=== PATIENT | male | born 1965 | race Caucasian/White ===

== ENCOUNTER → 2016-06-14 | Outpatient (CLI) | payer BC ==
--- NOTE | 2016-06-14 16:47 | REP ---
Right shoulder series: Four views: History: 49.91. Findings: There is osteoarthritis at the AC and glenohumeral articulations. A small accessory ossicle is seen at the superior aspect of the glenohumeral articulation. Subcortical cyst formation is seen in the humeral head. No fracture or subluxation is seen. Acromion process spurring is noted. Impression: Degenerative changes. No acute bony abnormality. Glenohumeral and acromioclavicular joint osteoarthritis. Acromion process spurring. Signed by Brice Farah MD 06/14/2016 05:42 P
--- NOTE | 2016-06-14 16:48 | REP ---
Right humerus: Three views: History: 79.62. Findings: Three views of the right humerus show no evidence of fracture or other acute bony abnormality. Osteoarthritic changes are seen at the shoulder. Impression: No acute bony abnormality. Signed by Brice Farah MD 06/14/2016 05:42 P
--- NOTE | 2016-06-14 16:49 | REP ---
Right elbow series: Four views: History: 59.90. Findings: Four views right elbow demonstrate coronoid process and olecranon process spurring. No fracture, subluxation, or joint effusion is seen. There is some lateral epicondylar spurring as well. Impression: Proximal ulnar spurring. Lateral epicondylar spurring. No acute bony abnormality. Signed by Brice Farah MD 06/14/2016 05:42 P
--- NOTE | 2016-06-14 17:29 | REP ---
Two-view right clavicle series, 06/14/2016: Indication: Right shoulder injury. Findings: Moderate hypertrophic and osteoarthritic changes are noted at the acromioclavicular joint. There is no acute fracture, subluxation, or dislocation within the right clavicle. The included portions of the scapula are without visualized fracture. Subchondral cystic changes in the humeral head consistent with mild osteoarthritic change. There are moderately decreased right lung volume with atelectatic changes in the right lower lung field. The left chest is mostly omitted from view. Left upper lobe opacity is suggested, possibly representing medial left clavicle. Impression: Moderate hypertrophic and osteoarthritic changes at the right acromioclavicular joint. No acute fracture or dislocation within the right clavicle. Consider chest radiograph if clinically indicated. Lung volumes are diminished and there is moderate atelectasis. Left perihilar opacity is suggested, possibly representing medial head of left clavicle. Signed by Lucina De La Cruz MD 06/14/2016 09:25 P
== END | disposition home or self-care (01) ==
LOC: M LRY 14:50
PROVIDERS: ATTEND Nurse Practitioner Family
DX: S59.901A Unspecified injury of right elbow, initial encounter (principal); M79.621 Pain in right upper arm; S49.91XA Unspecified injury of right shoulder and upper arm, initial encounter; M19.011 Primary osteoarthritis, right shoulder; M77.11 Lateral epicondylitis, right elbow; X58.XXXA Exposure to other specified factors, initial encounter; Y92.9 Unspecified place or not applicable; Y93.9 Activity, unspecified; Y99.9 Unspecified external cause status

== ENCOUNTER → 2023-09-28 | Outpatient (REF) | payer OTHER ==
[2023-09-29 15:57] LABS: CREATININE, URINE 79.6 MG/DL
== END ==
LOC: M LAB REF 14:59
PROVIDERS: ATTEND Nurse Practitioner Family
DX: E11.65 Type 2 diabetes mellitus with hyperglycemia (principal)